=== PATIENT | male | born 1960 | race Caucasian/White ===

== ENCOUNTER 2021-07-04 17:11 | Inpatient (IN) | payer OTHER ==
[~2021-07-04] VITALS: Ht 177.8 cm; Wt 121.1 kg
[2021-07-04] MEDS ORDERED: ONDANSETRON HCL INJ 2MG/ML 2ML 2 MG/ML VIAL IV STA (18:32)
[2021-07-04] MEDS ORDERED: DICYCLOMINE HCL 20 MG/2 ML VIAL IM ONE (18:45)
[2021-07-04 19:25] LABS: BASOPHILS % 0.1 % (0.0-1.0); EOSINOPHILS % 0.3 % (0.0-6.0); HEMATOCRIT 44.9 % (38.2-49.6); HEMOGLOBIN 14.9 g/dL (14.0-18.0); LYMPHOCYTES # (AUTO) 1.4 (1.0-3.2); LYMPHOCYTES % 18.3 % (18.0-39.1); MEAN CORPUSCULAR HEMOGLOBIN 29.9 pg (28-32); MEAN CORPUSCULAR HGB CONC 33.2 g/dL (31-35); MEAN CORPUSCULAR VOLUME 90.2 fL (81-99); MONOCYTES # (AUTO) 0.4 (0.2-0.8); MONOCYTES % 5.4 % (4.4-11.3); NEUTROPHILS # (AUTO) 5.8 (2.1-6.9); NEUTROPHILS % 75.5 % (38.7-80.0); PLATELET COUNT 198 x10e3/uL (140-360); RED BLOOD COUNT 4.98 x10e6/uL (4.3-5.7)
[2021-07-04 19:42] LABS: AMYLASE 31 U/L (25-125); LIPASE 43 U/L (8-78)
[2021-07-04 19:44] LABS: ALBUMIN 3.6 g/dL (3.5-5.0); ALBUMIN/GLOBULIN RATIO 1.1 (0.8-2.0); ANION GAP 17.1 mmol/L (8-16); CALCIUM 8.6 mg/dL (8.4-10.2); CREATININE, SERUM 0.97 mg/dL (0.72-1.25); POTASSIUM 4.1 mmol/L (3.5-5.1)
[2021-07-04 19:51] LABS: CREATINE KINASE MB 2.6 ng/mL (0-5.0)
[2021-07-04] MEDS ORDERED: DONNATAL/LIDOCAINE/MAALOX 30 ML SUSP PO ONE (20:15)
[2021-07-04] MEDS ORDERED: LIDOCAINE VISC 2% SOLN 15 ML UDC PO ONE (20:15)
[2021-07-04] MEDS ORDERED: BELLADONNA ALK/PHENOBARBITAL 5 ML UDC PO ONE (20:15)
[2021-07-04] MEDS ORDERED: MAGNESIUM/ALUMINUM/SIMETHICONE 30 ML UDC PO ONE (20:15)
[2021-07-04] MEDS ORDERED: BELLADONNA ALK/PHENOBARBITAL 5 ML UDC ONE (20:17)
[2021-07-04] MEDS ORDERED: LIDOCAINE VISC 2% SOLN 15 ML UDC ONE (20:17)
[2021-07-04] MEDS ORDERED: MAGNESIUM/ALUMINUM/SIMETHICONE 30 ML UDC ONE (20:17)
[2021-07-04] MEDS ORDERED: ONDANSETRON HCL INJ 2MG/ML 2ML 2 MG/ML VIAL IV PRN (22:45)
[2021-07-05] MEDS: SODIUM CHLORIDE 0.9% 1000ML 1,000 ML IV SCH ×5 (00:03→23:36)
[2021-07-05] MEDS: LEVOFLOXACIN 500MG/D5W 100ML IV SCH ×2 (00:04→23:36)
[2021-07-05] MEDS: MORPHINE SULFATE INJ 4 MG/ML INJ 1ML IV PRN (00:05)
[2021-07-05 00:43] LABS: CLARITY,URINE CLEAR (CLEAR); COLOR,URINE YELLOW (YELLOW); KETONES,URINE 2+ (NEGATIVE); LEUKOCYTE ESTERASE ,URINE NEGATIVE (NEGATIVE); NITRITE,URINE NEGATIVE (NEGATIVE); PROTEIN,URINE DIPSTICK TRACE (NEGATIVE); URINE UROBILINOGEN 0.2 mg/dL (0.2 - 1)
[2021-07-05 00:51] LABS: BACTERIA,URINE MODERATE /HPF; EPITHELIAL CELLS,URINE FEW /LPF; MUCUS,URINE MODERATE (RARE); WBC,URINE (MAN) 0-5 /HPF (0-5)
[2021-07-05] MEDS ORDERED: HYDRALAZINE HCL 20 MG/ML VIAL IV PRN (01:00)
[2021-07-05] MEDS ORDERED: BENZONATATE 100 MG CAP PO PRN (01:00)
[2021-07-05] MEDS ORDERED: DEXTROSE 50% SYRINGE 50 ML IV PRN ×2 (01:00→17:45)
[2021-07-05] MEDS ORDERED: ALBUTEROL/IPRATROPIUM 3 ML NEB NEB PRN (01:00)
[2021-07-05] MEDS ORDERED: ONDANSETRON HCL INJ 2MG/ML 2ML 2 MG/ML VIAL IV PRN (01:00)
[2021-07-05] MEDS ORDERED: SIMETHICONE 80 MG CHEW PO PRN (01:00)
[2021-07-05] MEDS ORDERED: LIDOCAINE 4% PATCH TP PRN (01:00)
[2021-07-05] MEDS ORDERED: DIPHENHYDRAMINE HCL 25 MG CAP PO PRN (01:00)
[2021-07-05] MEDS ORDERED: POTASSIUM CHLORIDE 20 MEQ TAB CR PO PRN (01:00)
[2021-07-05] MEDS ORDERED: DOCUSATE SODIUM 100 MG CAP PO PRN (01:00)
[2021-07-05] MEDS ORDERED: MELATONIN 5 MG TABLET PO PRN (01:00)
[2021-07-05] MEDS: METRONIDAZOLE 500MG/NS 100ML 100 ML IV SCH ×3 (01:38→17:00)
[2021-07-05 06:03] LABS: BASOPHILS % 0.1 % (0.0-1.0); HEMATOCRIT 41.2 % (38.2-49.6); HEMOGLOBIN 13.8 g/dL (14.0-18.0); LYMPHOCYTES % 12.6 % (18.0-39.1); MEAN CORPUSCULAR HEMOGLOBIN 29.8 pg (28-32); MEAN CORPUSCULAR HGB CONC 33.5 g/dL (31-35); MONOCYTES # (AUTO) 0.5 (0.2-0.8); MONOCYTES % 6.5 % (4.4-11.3); NEUTROPHILS # (AUTO) 6.2 (2.1-6.9); NEUTROPHILS % 80.5 % (38.7-80.0); PLATELET COUNT 182 x10e3/uL (140-360); RED BLOOD COUNT 4.63 x10e6/uL (4.3-5.7); RED CELL DISTRIBUTION WIDTH 12.9 % (11.7-14.4)
[2021-07-05 06:20] LABS: ALBUMIN 3.2 g/dL (3.5-5.0); ALBUMIN/GLOBULIN RATIO 1.1 (0.8-2.0); ANION GAP 16.8 mmol/L (8-16); CALCIUM 8.1 mg/dL (8.4-10.2); CREATININE, SERUM 0.84 mg/dL (0.72-1.25); POTASSIUM 4.8 mmol/L (3.5-5.1)
[2021-07-05] MEDS ORDERED: HYDROCODONE/APAP 5MG-325MG TAB PO PRN (07:30)
[2021-07-05] MEDS: PANTOPRAZOLE SOD 40 MG TABEC PO SCH (12:14)
[2021-07-05 12:16] VITALS: BP 148/86
[2021-07-05 15:24] VITALS: BP 145/80
[2021-07-05 16:33] VITALS: BP 145/80
[2021-07-05 16:43] VITALS: BP 145/80
[2021-07-05] MEDS ORDERED: MULTI-VITAMIN1 EACH PO (17:19)
[2021-07-05] MEDS ORDERED: LISINOPRIL10 MG PO (17:19)
[2021-07-05] MEDS ORDERED: LEVEMIR FL100 UNIT/1 SC (17:19)
[2021-07-05] MEDS ORDERED: METFORMIN HCL500 MG PO (17:19)
[2021-07-05] MEDS ORDERED: ATORVASTATIN CA20 MG PO (17:19)
[2021-07-05] MEDS ORDERED: ASPIRIN81 MG PO (17:19)
[2021-07-05 20:00] VITALS: BP 145/84
[2021-07-05] MEDS: INSULIN LISPRO 100 UNIT/1 ML 3ML VIAL SQ SCH (21:00)
[2021-07-05 21:20] VITALS: BP 145/84
[2021-07-06] VITALS (7 sets, daily range): BP systolic 138–156; BP diastolic 75–83
[2021-07-06] MEDS: METRONIDAZOLE 500MG/NS 100ML 100 ML IV SCH ×3 (02:16→18:00)
[2021-07-06] MEDS: ACETAMINOPHEN 325 MG TAB PO PRN (05:09)
[2021-07-06 05:33] LABS: BASOPHILS % 0.2 % (0.0-1.0); HEMATOCRIT 42.5 % (38.2-49.6); HEMOGLOBIN 14.2 g/dL (14.0-18.0); LYMPHOCYTES # (AUTO) 0.7 (1.0-3.2); LYMPHOCYTES % 5.9 % (18.0-39.1); MEAN CORPUSCULAR HEMOGLOBIN 29.3 pg (28-32); MEAN CORPUSCULAR HGB CONC 33.4 g/dL (31-35); MEAN CORPUSCULAR VOLUME 87.8 fL (81-99); MONOCYTES # (AUTO) 0.7 (0.2-0.8); MONOCYTES % 5.6 % (4.4-11.3); NEUTROPHILS # (AUTO) 10.9 (2.1-6.9); NEUTROPHILS % 87.9 % (38.7-80.0); PLATELET COUNT 189 x10e3/uL (140-360); RED BLOOD COUNT 4.84 x10e6/uL (4.3-5.7); RED CELL DISTRIBUTION WIDTH 12.8 % (11.7-14.4)
[2021-07-06 06:29] LABS: ALBUMIN 2.9 g/dL (3.5-5.0); ANION GAP 18.9 mmol/L (8-16); CREATININE, SERUM 0.84 mg/dL (0.72-1.25); POTASSIUM 3.9 mmol/L (3.5-5.1)
[2021-07-06] MEDS: SODIUM CHLORIDE 0.9% 1000ML 1,000 ML IV SCH ×3 (06:45→15:30)
[2021-07-06] MEDS: PANTOPRAZOLE SOD 40 MG TABEC PO SCH (07:30)
[2021-07-06] MEDS: INSULIN LISPRO 100 UNIT/1 ML 3ML VIAL SQ SCH ×4 (07:30→21:00)
[2021-07-06] MEDS ORDERED: BUPIVACAINE 0.25% 30ML SDV ONE (11:05)
[2021-07-06] MEDS ORDERED: ACETAMINOPHEN 1000 MG/100 ML 100 ML IV ONE (13:47)
[2021-07-06] MEDS: ONDANSETRON HCL INJ 2MG/ML 2ML 2 MG/ML VIAL IV PRN ×2 (14:53→16:40)
[2021-07-06] MEDS ORDERED: ONDANSETRON HCL INJ 2MG/ML 2ML 2 MG/ML VIAL ONE (15:02)
[2021-07-06] MEDS: MORPHINE SULFATE INJ 4 MG/ML INJ 1ML IV PRN (16:40)
[2021-07-07] VITALS (9 sets, daily range): BP systolic 128–155; BP diastolic 74–92
[2021-07-07] MEDS: LEVOFLOXACIN 500MG/D5W 100ML IV SCH ×2 (00:10→22:20)
[2021-07-07] MEDS: SODIUM CHLORIDE 0.9% 1000ML 1,000 ML IV SCH ×2 (00:10→09:54)
[2021-07-07] MEDS: ACETAMINOPHEN 325 MG TAB PO PRN (00:23)
[2021-07-07] MEDS: METRONIDAZOLE 500MG/NS 100ML 100 ML IV SCH ×3 (02:00→16:10)
[2021-07-07 05:38] LABS: HEMATOCRIT 37.5 % (38.2-49.6); HEMOGLOBIN 12.4 g/dL (14.0-18.0); LYMPHOCYTES # (AUTO) 0.7 (1.0-3.2); LYMPHOCYTES % 9.2 % (18.0-39.1); MEAN CORPUSCULAR HEMOGLOBIN 29.7 pg (28-32); MEAN CORPUSCULAR HGB CONC 33.1 g/dL (31-35); MEAN CORPUSCULAR VOLUME 89.7 fL (81-99); MONOCYTES # (AUTO) 0.4 (0.2-0.8); NEUTROPHILS # (AUTO) 6.8 (2.1-6.9); NEUTROPHILS % 85.4 % (38.7-80.0); PLATELET COUNT 181 x10e3/uL (140-360); RED BLOOD COUNT 4.18 x10e6/uL (4.3-5.7); RED CELL DISTRIBUTION WIDTH 13.2 % (11.7-14.4)
[2021-07-07 06:12] LABS: ANION GAP 14.1 mmol/L (8-16); CALCIUM 7.4 mg/dL (8.4-10.2); CREATININE, SERUM 0.73 mg/dL (0.72-1.25); POTASSIUM 4.1 mmol/L (3.5-5.1)
[2021-07-07] MEDS: MORPHINE SULFATE INJ 4 MG/ML INJ 1ML IV PRN (06:49)
[2021-07-07] MEDS: HYDROCODONE/APAP 5MG-325MG TAB PO PRN (08:14)
[2021-07-07] MEDS: PANTOPRAZOLE SOD 40 MG TABEC PO SCH (08:14)
[2021-07-07] MEDS: INSULIN LISPRO 100 UNIT/1 ML 3ML VIAL SQ SCH ×4 (08:16→21:45)
[2021-07-08] VITALS: BP 147/88
[2021-07-08] MEDS: METRONIDAZOLE 500MG/NS 100ML 100 ML IV SCH ×2 (02:45→09:35)
[2021-07-08] MEDS: HYDROCODONE/APAP 5MG-325MG TAB PO PRN (04:28)
[2021-07-08 04:32] VITALS: BP 149/89
[2021-07-08 05:51] LABS: BASOPHILS % 0.1 % (0.0-1.0); EOSINOPHILS % 0.1 % (0.0-6.0); HEMATOCRIT 35.2 % (38.2-49.6); HEMOGLOBIN 11.6 g/dL (14.0-18.0); LYMPHOCYTES # (AUTO) 0.7 (1.0-3.2); MEAN CORPUSCULAR HEMOGLOBIN 29.4 pg (28-32); MEAN CORPUSCULAR VOLUME 89.1 fL (81-99); MONOCYTES # (AUTO) 0.4 (0.2-0.8); MONOCYTES % 5.1 % (4.4-11.3); NEUTROPHILS # (AUTO) 6.7 (2.1-6.9); NEUTROPHILS % 85.1 % (38.7-80.0); PLATELET COUNT 202 x10e3/uL (140-360); RED BLOOD COUNT 3.95 x10e6/uL (4.3-5.7); RED CELL DISTRIBUTION WIDTH 13.2 % (11.7-14.4)
[2021-07-08 06:13] LABS: ANION GAP 14.1 mmol/L (8-16); CALCIUM 7.7 mg/dL (8.4-10.2); CREATININE, SERUM 0.72 mg/dL (0.72-1.25); POTASSIUM 4.1 mmol/L (3.5-5.1)
[2021-07-08] MEDS: PANTOPRAZOLE SOD 40 MG TABEC PO SCH (08:07)
[2021-07-08] MEDS: INSULIN LISPRO 100 UNIT/1 ML 3ML VIAL SQ SCH (08:08)
[2021-07-08 08:42] VITALS: BP 135/89
[2021-07-08 09:33] VITALS: BP 135/89
[2021-07-08 10:54] VITALS: BP 135/89
== END 2021-07-08 11:18 | disposition home or self-care (01) | DRG 417 ==
LOC: ER 18:32 → ERHOLD 22:47 → MED/SURG2 07-05 09:55 → MED/SURG3 07-06 20:02
PROVIDERS: ADMIT Internal Medicine; ATTEND Internal Medicine
PROC: 0FT44ZZ Resection of Gallbladder, Percutaneous Endoscopic Approach (ICD-10-PCS; principal; 2021-07-06 13:12)
DX: K80.01 Calculus of gallbladder with acute cholecystitis with obstruction (principal); U07.1 COVID-19; I10 Essential (primary) hypertension; E11.9 Type 2 diabetes mellitus without complications; E78.5 Hyperlipidemia, unspecified; D17.71 Benign lipomatous neoplasm of kidney; K82.8 Other specified diseases of gallbladder; Z79.84 Long term (current) use of oral hypoglycemic drugs; Z88.0 Allergy status to penicillin
CPT/HCPCS: 36415; 71045; 76705; 80048; 80053; 81001; 82150; 82550; 82553; 82948; 83690; 83735; 84484; 85025; 88304; 93005; 96361; 96365; 96366; 96372; 99284; J0500; J1956; J2270; J2405; J7030; U0002